=== PATIENT | male | born 1990 | race American Indian/Alaskan Native ===

== ENCOUNTER 2016-09-16 19:27 | Emergency (ER) | payer MEDICARE ==
[2016-09-16 20:16] VITALS: BP 124/75
[2016-09-16 20:43] LABS: Hematocrit 24.3 % (35.5-45.6); Hemoglobin 8.3 gm/dl (11.8-15.2); Mean Corpuscular HGB Conc 34 % (32-34); Mean Corpuscular Hemoglobin 27 pg (28-32); Mean Corpuscular Volume 77 fl (84-94); Platelet Count 313 K/mm3 (140-440); Red Blood Count 3.14 M/mm3 (3.65-5.03); Red Cell Distribution Width 17.6 % (13.2-15.2); Reticulocyte % 4.92 % (0.78-2.58); White Blood Count 15.1 K/mm3 (4.5-11.0)
[2016-09-16] MEDS ORDERED: D5NS 0.2% 1,000 ML IV SCH (21:00)
[2016-09-16 21:40] LABS: Blastocytes % (Manual) 0 %
[2016-09-16 21:41] LABS: Anisocytosis 1+; Microcytosis 1+
[2016-09-16 21:42] LABS: Diff Status Complete; Giant Platelets 1+; Hypochromasia 2+; Platelet Estimate Consistent w Auto; Poikilocytosis 1+; Polychromasia Few; Sickle Cells 2+; Target Cells 2+
== END 2016-09-16 20:19 | disposition left against medical advice (07) ==
LOC: ED 19:27
DX: J02.9 Acute pharyngitis, unspecified (principal); M54.5 Low back pain; M25.562 Pain in left knee; Z53.21 Procedure and treatment not carried out due to patient leaving prior to being seen by health care provider
CPT/HCPCS: 36415; 85007; 85025; 85045

== ENCOUNTER 2017-05-27 07:00 | Inpatient (IN) | payer MEDICARE ==
[2017-05-27 08:53] LABS: Basophils # (Auto) 0.1 K/mm3 (0.0-0.1); Basophils % (Auto) 0.4 % (0.0-1.8); Eosinophils # (Auto) 0.1 K/mm3 (0.0-0.4); Eosinophils % (Auto) 0.9 % (0.0-4.3); Hematocrit 30.7 % (35.5-45.6); Hemoglobin 9.9 gm/dl (11.8-15.2); Lymphocytes # (Auto) 3.9 K/mm3 (1.2-5.4); Lymphocytes % (Auto) 27.1 % (13.4-35.0); Mean Corpuscular HGB Conc 32 % (32-34); Mean Corpuscular Volume 78 fl (84-94); Monocytes % (Auto) 6.7 % (0.0-7.3); Platelet Count 427 K/mm3 (140-440); Red Blood Count 3.95 M/mm3 (3.65-5.03); Red Cell Distribution Width 16.9 % (13.2-15.2)
[2017-05-27 08:54] LABS: Mean Corpuscular Hemoglobin 25 pg (28-32)
[2017-05-27] MEDS ORDERED: D5NS 0.2% 1,000 ML IV SCH (09:00)
[2017-05-27 09:10] LABS: BUN/Creatinine Ratio 7; Blood Urea Nitrogen 4 mg/dL (9-20); Calcium 8.6 mg/dL (8.4-10.2); Hemolysis Index 16
--- NOTE | 2017-05-27 09:52 | XRay Report ---
ROUTINE CHEST, TWO VIEWS: HISTORY: Cough. The trachea, heart, mediastinal contour, lung singh and bony thorax are unremarkable. IMPRESSION: Unremarkable chest x-ray.
--- NOTE | 2017-05-27 11:25 | Emergency Department Report ---
Chief Complaint: Sickle Cell Crisis Stated Complaint: SICKLE CELL - HPI History of Present Illness: Mr. Gross has history of sickle cell disease. He has lower back pain and extremity pain. He has generalized malaise. He has cough. - Exam Vital Signs: Vital Signs 05/27/17 08:19 Temperature 100.4 F H Pulse Rate 100 H Respiratory 18 Rate Blood Pressure 117/69 O2 Sat by Pulse 100 Oximetry MSE screening note: Focused history and physical exam performed. Due to findings the following was ordered: ED Medical Decision Making - Lab Data Result diagrams: 05/27/17 08:40 05/27/17 08:40 ED Disposition for MSE Condition: Stable Referrals: PRIMARY CARE, [Primary Care Provider] - 3-5 Days
[2017-05-27] MEDS ORDERED: TYLENOL PO ONE (11:44)
[2017-05-27] MEDS ORDERED: DILAUDID IV ONE ×2 (11:50→13:23)
--- NOTE | 2017-05-27 11:50 | Emergency Department Report ---
<JEIMY GONZALES - Last Filed: 05/27/17 11:50> - General Chief Complaint: Sickle Cell Crisis Stated Complaint: SICKLE CELL Time Seen by Provider: 05/27/17 11:43 Source: patient Mode of arrival: Ambulatory Limitations: No Limitations - History of Present Illness MD Complaint: fever, cough, rhinorrhea, nasal congestion Onset/Timin - Related Data Previous Rx's Medication Instructions Recorded Last Taken Type Folic Acid [Folvite] 1 mg PO BID #30 tablet 01/26/16 Unknown Rx Ondansetron [Zofran Odt] 4 mg PO Q8HR PRN #20 tab.rapdis 01/26/16 Unknown Rx Oxycodone HCl/Acetaminophen 1 each PO Q6HR PRN #20 tablet 01/26/16 Unknown Rx [Percocet 10/325 mg] Allergies Allergy/AdvReac Type Severity Reaction Status Date / Time morphine Allergy Hives Verified 05/27/17 08:18 acetaminophen [From Lortab] AdvReac Mild Vomiting Verified 05/27/17 08:18 hydrocodone bitartrate AdvReac Mild Vomiting Verified 05/27/17 08:18 [From Lortab] ED Review of Systems ROS: Stated complaint: SICKLE CELL Other details as noted in HPI ED Past Medical Hx - Past Medical History Hx Sickle Cell Disease: Yes - Surgical History Past Surgical History?: No - Social History Smoking Status: Current Every Day Smoker Substance Use Type: None - Medications Home Medications: Home Medications Medication Instructions Recorded Confirmed Last Taken Type Folic Acid [Folvite] 1 mg PO BID #30 tablet 01/26/16 Unknown Rx Ondansetron [Zofran Odt] 4 mg PO Q8HR PRN #20 tab.rapdis 01/26/16 Unknown Rx Oxycodone HCl/Acetaminophen 1 each PO Q6HR PRN #20 tablet 01/26/16 Unknown Rx [Percocet 10/325 mg] ED Physical Exam - General Limitations: No Limitations ED Course Vital Signs 05/27/17 05/27/17 08:19 11:59 Temperature 100.4 F H Pulse Rate 100 H Respiratory 18 16 Rate Blood Pressure 117/69 O2 Sat by Pulse 100 Oximetry ED Medical Decision Making - Lab Data Result diagrams: 05/27/17 08:40 05/27/17 08:40 Critical care attestation.: If time is entered above; I have spent that time in minutes in the direct care of this critically ill patient, excluding procedure time. ED Disposition Condition: Stable Referrals: PRIMARY CARE, [Primary Care Provider] - 3-5 Days <SUNITA HOOKS - Last Filed: 05/27/17 12:21> - History of Present Illness Initial Comments: This is a 26 year-old male presents to the emergency department with a 2 day history of low back pain that he believes is a sickle cell pain crisis. There is some radiation of this towards his legs but he denies any problems with bowel or bladder, numbness or paresthesias or any neurological deficits. The patient also has a 2 day history of some nasal congestion and a mixed dry and productive cough. He denies any shortness of breath or any chest pain at rest but says that he gets some chest wall discomfort when he is coughing. He travels back and forth between [place] and [place] and just moved back here again and therefore does not have a primary care physician. No sick contacts at home. He has not taken anything for her symptoms to presentation. ED Review of Systems Constitutional: fever. denies: weakness Eyes: denies: eye pain, eye discharge, vision change ENT: denies: ear pain, throat pain Respiratory: cough. denies: shortness of breath Cardiovascular: denies: palpitations, edema Gastrointestinal: denies: abdominal pain, nausea, diarrhea Genitourinary: denies: urgency, dysuria Musculoskeletal: back pain. denies: joint swelling Skin: denies: rash, lesions Neurological: denies: headache, weakness, paresthesias ED Medical Decision Making - Lab Data Result diagrams: 05/27/17 08:40 05/27/17 08:40
[2017-05-27] MEDS ORDERED: NACL 0.9% 1000 ML 1,000 ML IV ONE (12:14)
--- NOTE | 2017-05-27 14:45 | Emergency Department Report ---
HPI - General Chief Complaint: Sickle Cell Crisis Time Seen by Provider: 05/27/17 11:43 - HPI HPI: This is a 26 year-old male who presents to the emergency department with complaint of some low back pain with some radiation towards the legs that he believes is a sickle cell pain crisis. He also presents with a one to 2 day history of a fever and a mixed dry and productive cough. He denies any chest pain at rest but says that when he is coughing he feels some chest and her chest wall discomfort. He has not taken anything for her symptoms prior presentation. 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 No sick contacts at home. ED Past Medical Hx - Past Medical History Hx Sickle Cell Disease: Yes - Surgical History Past Surgical History?: No - Social History Smoking Status: Current Every Day Smoker Substance Use Type: None - Medications Home Medications: Home Medications Medication Instructions Recorded Confirmed Last Taken Type Folic Acid [Folvite] 1 mg PO BID #30 tablet 01/26/16 Unknown Rx Ondansetron [Zofran Odt] 4 mg PO Q8HR PRN #20 tab.rapdis 01/26/16 Unknown Rx Oxycodone HCl/Acetaminophen 1 each PO Q6HR PRN #20 tablet 01/26/16 Unknown Rx [Percocet 10/325 mg] ED Review of Systems ROS: Stated complaint: SICKLE CELL Other details as noted in HPI Comment: All other systems reviewed and negative Constitutional: denies: chills, fever Eyes: denies: eye pain, eye discharge, vision change ENT: denies: ear pain, throat pain Respiratory: cough. denies: wheezing Cardiovascular: chest pain (with coughing). denies: edema Gastrointestinal: denies: abdominal pain, nausea, diarrhea Genitourinary: denies: urgency, dysuria Musculoskeletal: back pain, myalgia Skin: denies: rash, lesions Neurological: headache. denies: weakness Physical Exam - Physical Exam Vital Signs: Vital Signs 05/27/17 05/27/17 05/27/17 08:19 11:59 12:41 Temperature 100.4 F H Pulse Rate 100 H 94 H Respiratory 18 16 16 Rate Blood Pressure 117/69 Blood Pressure 106/45 [Right] O2 Sat by Pulse 100 95 Oximetry Physical Exam: GENERAL: The patient is well-developed well-nourished. HENT: Normocephalic. Atraumatic. Patient has moist mucous membranes. EYES: Extraocular motions are intact. Pupils equal reactive to light bilaterally. NECK: Supple. Trachea is midline. CHEST/LUNGS: Clear to auscultation. There is no respiratory distress noted. HEART/CARDIOVASCULAR: Regular. There is mild tachycardia. There is no murmur. ABDOMEN: Abdomen is soft, nontender. Patient has normal bowel sounds. There is no abdominal distention. SKIN: Skin is warm and dry. NEURO: The patient is awake, alert, and oriented. The patient is cooperative. The patient has no focal neurologic deficits. The patient has normal speech. MUSCULOSKELETAL: There is no tenderness or deformity. There is no limitation range of motion. There is no evidence of acute injury. BACK: No midline thoracic or lumbar TTP, step off or deformity. ED Course Vital Signs 05/27/17 05/27/17 05/27/17 08:19 11:59 12:41 Temperature 100.4 F H Pulse Rate 100 H 94 H Respiratory 18 16 16 Rate Blood Pressure 117/69 Blood Pressure 106/45 [Right] O2 Sat by Pulse 100 95 Oximetry ED Medical Decision Making - Lab Data Result diagrams: 05/27/17 08:40 05/27/17 08:40 - EKG Data -: EKG Interpreted by Me EKG shows normal: sinus rhythm, axis, intervals, QRS complexes, ST-T waves ( early repolarization) Rate: normal - EKG Data When compared to previous EKG there are: no significant change Interpretation: unchanged when compared t (02/28/15) - Radiology Data Radiology results: report reviewed, image reviewed interpreted by me: Chest x-ray does not show any acute process. There are no pleural effusions, obvious pneumonia and there is no pneumothorax. CTA CHEST: HISTORY: Chest pain, elevated d-dimer. COMPARISON: none. TECHNIQUE: Helical CT in 1.25mm intervals following IV contrast. Pulmonary embolus protocol. Sagittal and coronal reformatted images. Rotational MIP images. FINDINGS: Contrast bolus is satisfactory. No pulmonary embolus is identified. Thyroid gland: Normal. Tracheobronchial tree: Normal. Esophagus: Normal. Heart: Normal. Pericardium: Normal. Mediastinum: An enlarged AP window lymph node measures 2.8 x 1.2 cm. There are multiple bilateral similar appearing enlarged axillary lymph nodes. No lower cervical or upper abdominal lymph nodes are appreciated. Lung Batista: normal. Pleural Spaces: Normal. Musculoskeletal: Normal. IMPRESSION: No evidence for pulmonary embolus. Mediastinal and bilateral axillary adenopathy. Is there clinical concern for lymphoma in this patient? Transcribed By: TTR Dictated By: BRE BRISENO JR, MD Electronically Authenticated By: BRE BRISENO JR, MD Signed Date/Time: 05/27/17 7924 - Medical Decision Making Patient presents with a low-grade fever and some back pain with some radiation towards his legs. He does not have any problems with bowel or bladder, numbness or paresthesias or any neurological deficits and therefore is low suspicion for any of the emergent back conditions such as cauda equina, epidural abscess or compression syndrome. Chest x-ray did not show any signs of infiltrates or pneumonia so he is a lower suspicion for chest crisis. However with his recent travel, his intermittent chest pain with coughing, the tachycardia, I decided to rule out a PE. D-dimer came back elevated at [address] angiography of the chest was done that did not show any evidence for pulmonary embolus but did show some mediastinal and bilateral axillary adenopathy. The patient has gotten some IV fluids and pain medication but still says he is having pain. He will be admitted to the hospital for further evaluation and treatment and has been accepted for admission by the hospitalist , Dr Suggs. - Differential Diagnosis SS pain crisis, chest crisis, influenza, pneumonia Critical Care Time: No Critical care attestation.: If time is entered above; I have spent that time in minutes in the direct care of this critically ill patient, excluding procedure time. ED Disposition Clinical Impression: Sickle cell pain crisis, Lymphadenopathy, Dehydration Fever Qualifiers: Fever type: unspecified Qualified Code(s): R50.9 - Fever, unspecified Leukocytosis Qualifiers: Leukocytosis type: unspecified Qualified Code(s): D72.829 - Elevated white blood cell count, unspecified Disposition: OP ADMIT IP TO THIS HOSP Is pt being admited?: Yes Condition: Fair Referrals: PRIMARY CARE, [Primary Care Provider] - 3-5 Days Time of Disposition: 15:25
--- NOTE | 2017-05-27 14:54 | Cat Scan Report ---
CTA CHEST: HISTORY: Chest pain, elevated d-dimer. COMPARISON: none. TECHNIQUE: Helical CT in 1.25mm intervals following IV contrast. Pulmonary embolus protocol. Sagittal and coronal reformatted images. Rotational MIP images. FINDINGS: Contrast bolus is satisfactory. No pulmonary embolus is identified. Thyroid gland: Normal. Tracheobronchial tree: Normal. Esophagus: Normal. Heart: Normal. Pericardium: Normal. Mediastinum: An enlarged AP window lymph node measures 2.8 x 1.2 cm. There are multiple bilateral similar appearing enlarged axillary lymph nodes. No lower cervical or upper abdominal lymph nodes are appreciated. Lung Batista: normal. Pleural Spaces: Normal. Musculoskeletal: Normal. IMPRESSION: No evidence for pulmonary embolus. Mediastinal and bilateral axillary adenopathy. Is there clinical concern for lymphoma in this patient?
[2017-05-27] MEDS ORDERED: PROVENTIL IH PRN (15:22)
[2017-05-27] MEDS ORDERED: PERCOCET 5/325 PO PRN (15:22)
[2017-05-27] MEDS ORDERED: ZOFRAN IV PRN (15:22)
[2017-05-27] MEDS ORDERED: ZOFRAN ODT PO PRN (15:24)
[2017-05-27] MEDS ORDERED: NON-FORMULARY (Oxycodone Hcl/Acetaminophen [Percocet 10/325 Mg] 1 EACH) PO PRN (15:24)
--- NOTE | 2017-05-27 15:25 | History and Physical Report ---
History of Present Illness Chief complaint: Im hurting all over doc History of present illness: 26 YO Male with SSD, Nicotine Dependence presents to ED for evaluation. Pt states that he has experienced pain in his lower body for the past 2 days. Pt states that his pain is 6/10, constant, and is associated with coughing. Pt acknowledges medication noncompliance, and lack of outpatient F/U care. Pt states that he has not taken any medication for his pain. Pt denies fever, chills, CP, Palpitations, NVD, Hip pain, hemoptysis, shortness of breath, syncope, unilateral leg swelling, calf pain, or recent ill contacts. Pt seen and evaluated in ED and found to have symptoms consistent with sickle cell crisis. Past History Past Medical History: other (Nicotine Dependence, SCD) Past Surgical History: No surgical history, Other (reviewed) Social history: single, smoking. denies: alcohol abuse, prescription drug abuse Family history: hypertension, other (SCD) Medications and Allergies Allergies Allergy/AdvReac Type Severity Reaction Status Date / Time morphine Allergy Hives Verified 05/27/17 08:18 acetaminophen [From Lortab] AdvReac Mild Vomiting Verified 05/27/17 08:18 hydrocodone bitartrate AdvReac Mild Vomiting Verified 05/27/17 08:18 [From Lortab] Home Medications Medication Instructions Recorded Confirmed Last Taken Type Folic Acid [Folvite] 1 mg PO BID #30 tablet 01/26/16 05/27/17 Unknown Rx Ondansetron [Zofran Odt] 4 mg PO Q8HR PRN #20 tab.rapdis 01/26/16 05/27/17 Unknown Rx Oxycodone HCl/Acetaminophen 1 each PO Q6HR PRN #20 tablet 01/26/16 05/27/17 Unknown Rx [Percocet 10/325 mg] Active Meds: Active Medications Acetaminophen (Tylenol) 650 mg PO Q4H PRN PRN Reason: Pain MILD(1-3)/Fever >100.5/GARCIA Albuterol (Proventil) 2.5 mg IH Q4HRT PRN PRN Reason: Shortness Of Breath Folic Acid (Folvite) 1 mg PO BID LUNA Hydroxyurea (Hydrea) 500 mg PO QDAY LUNA Dextrose/Sodium Chloride (D5ns 0.2%) 1,000 mls @ 250 mls/hr IV DIRECT LUNA Sodium Chloride (Nacl 0.45%) 2,000 mls @ 150 mls/hr IV DIRECT LUNA Sodium Chloride (Nacl 0.45%) 1,000 mls @ 1,000 mls/hr IV DIRECT LUNA Miscellaneous Medication (Oxycodone Hcl/Acetaminophen [Percocet 10/325 Mg]) 1 each PO Q6HR PRN PRN Reason: Pain Ondansetron HCl (Zofran) 4 mg IV Q8H PRN PRN Reason: N/V unrelieved by Reglan Ondansetron HCl (Zofran Odt) 4 mg PO Q8HR PRN PRN Reason: Nausea And Vomiting Review of Systems Constitutional: chronic pain, no fever, no chills, no sweats Ears, nose, mouth and throat: no ear pain, no ear discharge, no tinnitis, no decreased hearing, no nose pain Cardiovascular: no chest pain, no orthopnea, no palpitations, no edema, no syncope Respiratory: no cough, no cough with sputum, no excessive sputum, no hemoptysis , no shortness of breath Rectal: no pain, no incontinence, no bleeding Musculoskeletal: no neck stiffness, no neck pain, no shooting arm pain, no arm numbness/tingling, no low back pain, no shooting leg pain Integumentary: no rash, no pruritis, no redness, no sores, no wounds, no jaundice Neurological: no head injury, no transient paralysis, no paralysis, no weakness , no parathesias, no numbness, no tingling, no seizures Psychiatric: no anxiety, no memory loss, no change in sleep habits, no sleep disturbances, no insomnia, no hypersomnia, no change in appetite Endocrine: no cold intolerance, no heat intolerance, no polyphagia, no excessive thirst, no polydipsia, no polyuria, no nocturia Hematologic/Lymphatic: no easy bruising, no easy bleeding, no lymphadenopathy, no lymphedema Allergic/Immunologic: no urticaria, no allergic rhinitis, no wheezing, no persistent infections Exam - Constitutional Vitals: Temp Pulse Resp BP Pulse Ox 100.4 F H 105 H 16 112/55 95 05/27/17 08:19 05/27/17 15:14 05/27/17 15:14 05/27/17 15:14 05/27/17 15:14 General appearance: Present: mild distress - EENT Eyes: Present: PERRL ENT: hearing intact, clear oral mucosa - Neck Neck: Present: supple, normal ROM - Respiratory Respiratory effort: normal Respiratory: bilateral: CTA - Cardiovascular Heart Sounds: Present: S1 & S2. Absent: rub, click - Extremities Extremities: pulses symmetrical, No edema Peripheral Pulses: within normal limits - Abdominal General gastrointestinal: Present: soft, non-tender, non-distended, normal bowel sounds Male genitourinary: Present: normal - Integumentary Integumentary: Present: clear, warm, dry - Musculoskeletal Musculoskeletal: gait normal, strength equal bilaterally - Psychiatric Psychiatric: appropriate mood/affect, intact judgment & insight - Neurologic Neurologic: CNII-XII intact, moves all extremities Results - Labs CBC & Chem 7: 05/27/17 08:40 05/27/17 08:40 Labs: Abnormal lab results 05/27/17 05/27/17 05/27/17 Range/Units 08:40 08:40 12:34 WBC 14.3 H (4.5-11.0) K/mm3 Hgb 9.9 L (11.8-15.2) gm/dl Hct 30.7 L (35.5-45.6) % MCV 78 L (84-94) fl MCH 25 L (28-32) pg RDW 16.9 H (13.2-15.2) % [place] # 1.0 H (0.0-0.8) K/mm3 Seg Neutrophils # 9.3 H (1.8-7.7) K/mm3 Percent Retic 6.49 H (0.78-2.58) % D-Dimer 1317.75 H (0-234) ng/mlDDU Sodium 136 L (137-145) mmol/L BUN 4 L (9-20) mg/dL Creatinine 0.6 L (0.8-1.5) mg/dL Assessment and Plan - Patient Problems (1) Sickle cell pain crisis Current Visit: Yes Status: Acute Plan to address problem: IVF resuscitation, pain control, hydroxyurea, folic acid, supportive care. (2) Nicotine dependence Current Visit: Yes Status: Acute Qualifiers: Nicotine product type: cigarettes Substance use status: in withdrawal Qualified Code(s): F17.213 - Nicotine dependence, cigarettes, with withdrawal Plan to address problem: Pt counseled and refused to pick quit date, supportive care. (3) Severe malnutrition Current Visit: Yes Status: Acute Plan to address problem: encourage increased protein intake, supportive care. (4) DVT prophylaxis Current Visit: Yes Status: Acute
[2017-05-27] MEDS ORDERED: ROXICODONE PO PRN (15:40)
[2017-05-27] MEDS ORDERED: NACL 0.45% 1,000 ML IV SCH (16:00)
[2017-05-27] MEDS ORDERED: NACL 0.45% 2,000 ML IV SCH (16:00)
[2017-05-27] MEDS: PERCOCET 5/325 PO PRN (17:32)
[2017-05-27] MEDS: FOLVITE PO SCH (21:08)
[2017-05-27 21:13] LABS: Bilirubin,Urine NEG (Negative); Blood,Urine NEG (Negative); Color,Urine Yellow (Yellow); Nitrite,Urine NEG (Negative); Protein,Urine <15 mg/dL mg/dL (Negative); RBC,Urine < 1.0 /HPF (0.0-6.0); WBC,Urine < 1.0 /HPF (0.0-6.0)
[2017-05-28] MEDS ORDERED: DILAUDID IV ONE (02:00)
[2017-05-28] MEDS: TESSALON PERLES PO PRN ×2 (02:22→21:05)
[2017-05-28] MEDS: PERCOCET 5/325 PO PRN (08:28)
--- NOTE | 2017-05-28 09:19 | Progress Note ---
Assessment and Plan Assessment and plan: Sickle cell vaso-occlusive crisis. patient admitted to Med/surg. he says Percocet not helping with pain. Will switch to Dilaudid iv prn. iv fluids. Consult Dr. Walter Mediastinal and axillary lyphadenopathy. I discuused this with patient and he denies any previous history of this. Willl consult oncologist, Dr. Walter. Leukocytosis, reactive. Hyponatremia. Give iv fluid NS and recheck in am. Full code status History Interval history: gen body pain, Low back pain Hospitalist Physical - Physical exam Narrative exam: GEN APPEARANCE : Not in acute distress, HEENT: Normocephalic, Atraumatic NECK : supple, no JVD LUNGS: Clear to auscultation bilaterally, no rales, no wheeze HEART: S1 and S2 regular, no murmurs, rubs or gallop, ABD: Soft, non tender, non distended, normal bowel sounds EXT:No edema, no clubbing, no cyanosis NEURO: Awake, alert, oriented x 3, no focal signs - Constitutional Vitals: Temp Pulse Resp BP Pulse Ox 99.5 F 84 16 92/46 92 05/28/17 07:52 05/28/17 07:52 05/28/17 07:52 05/28/17 07:52 05/28/17 07:52 General appearance: Present: mild distress Results - Labs CBC & Chem 7: 05/27/17 08:40 05/27/17 08:40 Labs: Laboratory Last Values WBC 14.3 K/mm3 (4.5-11.0) H 05/27/17 08:40 RBC 3.95 M/mm3 (3.65-5.03) 05/27/17 08:40 Hgb 9.9 gm/dl (11.8-15.2) L 05/27/17 08:40 Hct 30.7 % (35.5-45.6) L 05/27/17 08:40 MCV 78 fl (84-94) L 05/27/17 08:40 MCH 25 pg (28-32) L 05/27/17 08:40 MCHC 32 % (32-34) 05/27/17 08:40 RDW 16.9 % (13.2-15.2) H 05/27/17 08:40 Plt Count 427 K/mm3 (140-440) 05/27/17 08:40 Lymph % (Auto) 27.1 % (13.4-35.0) 05/27/17 08:40 [place] % (Auto) 6.7 % (0.0-7.3) 05/27/17 08:40 Eos % (Auto) 0.9 % (0.0-4.3) 05/27/17 08:40 Baso % (Auto) 0.4 % (0.0-1.8) 05/27/17 08:40 Lymph # 3.9 K/mm3 (1.2-5.4) 05/27/17 08:40 [place] # 1.0 K/mm3 (0.0-0.8) H 05/27/17 08:40 Eos # 0.1 K/mm3 (0.0-0.4) 05/27/17 08:40 Baso # 0.1 K/mm3 (0.0-0.1) 05/27/17 08:40 Seg Neutrophils % 64.9 % (40.0-70.0) 05/27/17 08:40 Seg Neutrophils # 9.3 K/mm3 (1.8-7.7) H 05/27/17 08:40 Percent Retic 6.49 % (0.78-2.58) H 05/27/17 08:40 D-Dimer 1317.75 ng/mlDDU (0-234) H 05/27/17 12:34 Sodium 136 mmol/L (137-145) L 05/27/17 08:40 Potassium 5.0 mmol/L (3.6-5.0) 05/27/17 08:40 Chloride 100.6 mmol/L (98-107) 05/27/17 08:40 Carbon Dioxide 27 mmol/L (22-30) 05/27/17 08:40 Anion Gap 13 mmol/L 05/27/17 08:40 BUN 4 mg/dL (9-20) L 05/27/17 08:40 Creatinine 0.6 mg/dL (0.8-1.5) L 05/27/17 08:40 Estimated GFR > 60 ml/min 05/27/17 08:40 BUN/Creatinine Ratio 7 % 05/27/17 08:40 Glucose 87 mg/dL (75-100) 05/27/17 08:40 Lactic Acid 1.90 mmol/L (0.7-2.0) 05/27/17 08:40 Calcium 8.6 mg/dL (8.4-10.2) 05/27/17 08:40 Total Creatine Kinase 89 units/L (55-170) 05/27/17 08:40 Troponin T < 0.010 ng/mL (0.00-0.029) 05/27/17 12:34 Urine Color Yellow (Yellow) 05/27/17 Unknown Urine Turbidity Clear (Clear) 05/27/17 Unknown Urine pH 6.0 (5.0-7.0) 05/27/17 Unknown Ur Specific [place] 1.026 (1.003-1.030) 05/27/17 Unknown Urine Protein <15 mg/dl mg/dL (Negative) 05/27/17 Unknown Urine Glucose (UA) Neg mg/dL (Negative) 05/27/17 Unknown Urine Ketones Neg mg/dL (Negative) 05/27/17 Unknown Urine Blood Neg (Negative) 05/27/17 Unknown Urine Nitrite Neg (Negative) 05/27/17 Unknown Urine Bilirubin Neg (Negative) 05/27/17 Unknown Urine Urobilinogen 4.0 mg/dL (<2.0) 05/27/17 Unknown Ur Leukocyte Esterase Neg (Negative) 05/27/17 Unknown Urine WBC (Auto) < 1.0 /HPF (0.0-6.0) 05/27/17 Unknown Urine RBC (Auto) < 1.0 /HPF (0.0-6.0) 05/27/17 Unknown
[2017-05-28] MEDS: FOLVITE PO SCH ×2 (10:36→21:05)
[2017-05-28] MEDS: HYDREA PO SCH (10:36)
[2017-05-28] MEDS: DILAUDID IV PRN ×3 (11:35→21:08)
[2017-05-28] MEDS: NACL 0.9% 1000 ML 1,000 ML IV SCH ×2 (13:06→21:06)
[2017-05-28] MEDS: HEPARIN SUB-Q SCH ×2 (16:25→21:08)
[2017-05-28] MEDS ORDERED: DILAUDID IM PRN (17:45)
--- NOTE | 2017-05-28 17:51 | Consultation ---
History of Present Illness - Reason for Consult Consult date: 05/28/17 diffuse Lymphnodes. Requesting physician: CHEPE CARTAGENA - History of Present Illness Thank you for this consult, patient seen/examined, record reviewed, case d/w patient. He stated that he had LN in the groin few months ago, and bx at [facility], was negative.Will probably need out patient PET scan, and if suspicious, will need bx. Past History Past Medical History: anemia, other (Nicotine Dependence, SCD) Past Surgical History: No surgical history, Other (reviewed) Social history: single, smoking. denies: alcohol abuse, prescription drug abuse Family history: hypertension, other (SCD) Medications and Allergies Allergies Allergy/AdvReac Type Severity Reaction Status Date / Time morphine Allergy Hives Verified 05/27/17 08:18 acetaminophen [From Lortab] AdvReac Mild Vomiting Verified 05/27/17 08:18 hydrocodone bitartrate AdvReac Mild Vomiting Verified 05/27/17 08:18 [From Lortab] Home Medications Medication Instructions Recorded Confirmed Last Taken Type Folic Acid [Folvite] 1 mg PO BID #30 tablet 01/26/16 05/27/17 Unknown Rx Ondansetron [Zofran Odt] 4 mg PO Q8HR PRN #20 tab.rapdis 01/26/16 05/27/17 Unknown Rx Oxycodone HCl/Acetaminophen 1 each PO Q6HR PRN #20 tablet 01/26/16 05/27/17 Unknown Rx [Percocet 10/325 mg] Active Meds: Active Medications Acetaminophen (Tylenol) 650 mg PO Q4H PRN PRN Reason: Pain MILD(1-3)/Fever >100.5/GARCIA Albuterol (Proventil) 2.5 mg IH Q4HRT PRN PRN Reason: Shortness Of Breath Benzonatate (Tessalon Perles) 100 mg PO Q6HR PRN PRN Reason: Cough Last Admin: 05/28/17 02:22 Dose: 100 mg Folic Acid (Folvite) 1 mg PO BID [facility] Last Admin: 05/28/17 10:36 Dose: 1 mg Heparin Sodium (Porcine) (Heparin) 5,000 unit SUB-Q Q8HR [facility] Last Admin: 05/28/17 16:25 Dose: 5,000 unit Hydromorphone HCl (Dilaudid) 2 mg IM Q3H PRN PRN Reason: Pain , Severe (7-10) Hydroxyurea (Hydrea) 500 mg PO QDAY LUNA Last Admin: 05/28/17 10:36 Dose: 500 mg Sodium Chloride (Nacl 0.9% 1000 Ml) 1,000 mls @ 150 mls/hr IV DIRECT LUNA Last Admin: 05/28/17 13:06 Dose: 150 mls/hr Ondansetron HCl (Zofran) 4 mg IV Q8H PRN PRN Reason: N/V unrelieved by Reglan Ondansetron HCl (Zofran Odt) 4 mg PO Q8HR PRN PRN Reason: Nausea And Vomiting Review of Systems Constitutional: chronic pain Exam - Constitutional Vitals: Temp Pulse Resp BP Pulse Ox 99.0 F 84 16 96/52 92 05/28/17 14:46 05/28/17 07:52 05/28/17 14:46 05/28/17 14:46 05/28/17 07:52 General appearance: Present: no acute distress, well-nourished - EENT Eyes: Present: PERRL ENT: hearing intact, clear oral mucosa - Neck Neck: Present: supple, normal ROM - Respiratory Respiratory effort: normal Respiratory: bilateral: CTA - Cardiovascular Heart Sounds: Present: S1 & S2. Absent: rub, click - Extremities Extremities: pulses symmetrical, No edema Peripheral Pulses: within normal limits - Abdominal General gastrointestinal: Present: soft, non-tender, non-distended, normal bowel sounds Male genitourinary: Present: deferred - Rectal Rectal Exam: deferred - Integumentary Integumentary: Present: clear, warm, dry - Musculoskeletal Musculoskeletal: gait normal, strength equal bilaterally - Psychiatric Psychiatric: appropriate mood/affect, intact judgment & insight - Neurologic Neurologic: CNII-XII intact, moves all extremities Results - Labs CBC & Chem 7: 05/27/17 08:40 05/27/17 08:40 Assessment and Plan - Patient Problems (1) Dehydration Current Visit: Yes Status: Acute Plan to address problem: hydration (2) Lymphadenopathy Current Visit: Yes Status: Acute Plan to address problem: See notes. (3) Sickle cell pain crisis Current Visit: Yes Status: Acute Plan to address problem: Pain control. (4) Nicotine dependence Current Visit: Yes Status: Acute Qualifiers: Nicotine product type: cigarettes Substance use status: in withdrawal Qualified Code(s): F17.213 - Nicotine dependence, cigarettes, with withdrawal Plan to address problem: Smoking patch. (5) Leukocytosis Current Visit: Yes Status: Acute Qualifiers: Leukocytosis type: unspecified Qualified Code(s): D72.829 - Elevated white blood cell count, unspecified Plan to address problem: may be crisis related vs infection.
[2017-05-28] MEDS ORDERED: DILAUDID IV PRN (17:55)
[2017-05-29] MEDS: NACL 0.9% 1000 ML 1,000 ML IV SCH ×4 (02:59→23:29)
[2017-05-29] MEDS: TESSALON PERLES PO PRN ×2 (04:29→21:14)
[2017-05-29] MEDS: DILAUDID IV PRN ×5 (04:30→22:17)
[2017-05-29] MEDS: HEPARIN SUB-Q SCH ×4 (04:33→21:14)
[2017-05-29 08:05] LABS: Hematocrit 28.1 % (35.5-45.6); Hemoglobin 9.5 gm/dl (11.8-15.2); Mean Corpuscular HGB Conc 34 % (32-34); Mean Corpuscular Volume 75 fl (84-94); Platelet Count 306 K/mm3 (140-440); Red Blood Count 3.72 M/mm3 (3.65-5.03); Red Cell Distribution Width 18.4 % (13.2-15.2)
[2017-05-29 08:18] LABS: Mean Corpuscular Hemoglobin 26 pg (28-32)
[2017-05-29 08:26] LABS: BUN/Creatinine Ratio 8; Blood Urea Nitrogen 4 mg/dL (9-20); Calcium 8.3 mg/dL (8.4-10.2); Hemolysis Index 11
[2017-05-29] MEDS: HYDREA PO SCH (09:14)
[2017-05-29] MEDS: FOLVITE PO SCH ×2 (09:14→21:14)
[2017-05-29] MEDS: TYLENOL PO PRN (11:09)
--- NOTE | 2017-05-29 11:51 | Discharge Summary ---
Providers - Providers Date of Admission: 05/27/17 15:22 Date of discharge: 05/29/17 Attending physician: CHEPE CARTAGENA 05/28/17 09:19 Consult to Physician [CONS] Routine Consulting Provider: ANAI DESAI Reason For Exam: lymphadenopathy,sickle cell crisis Place consult to:: DR. Baltazar Notified:: DR. Mcduffie Phone number called:: [phone] Was contact made?: Yes If yes, spoke with:: DR. Mcduffie Time called:: 11:05 Primary care physician: BOOKSTORE CLERK Hospitalization Condition: Fair Hospital course: Patient with sickle cell presents with generalized body pain, mostly low back pain. She was diagnosed with sickle cell vaso-occlusive disease. CT chest showed mediastinal and axillary lymphadenopathy, therefore Dr. Desai, Oncology consulted. Pain improved and he was discharged home 05/30/[address] Desai as outpatient for further work up to rule out lymphoma. Total time spent omn discharge, 32 mins Disposition: DC- TO HOME OR SELFCARE - Discharge Diagnoses (1) Dehydration Status: Acute (2) Lymphadenopathy Status: Acute (3) Sickle cell pain crisis Status: Acute Core Measure Documentation - Palliative Care Palliative Care/ Comfort Measures: Not Applicable - Core Measures Any of the following diagnoses?: none Exam - Constitutional Vitals: Temp Pulse Resp BP Pulse Ox 98.5 F 89 18 107/64 90 05/29/17 08:01 05/29/17 08:01 05/29/17 08:01 05/29/17 08:01 05/29/17 08:01 Plan Activity: advance as tolerated Diet: regular Additional Instructions: 1.Follow up with Dr. Desai in 3-5 days to follow mediastinal and axillary lymphadenopathy. Follow up with: PRIMARY CAREMD [Primary Care Provider] - 3-5 Days Prescriptions: Oxycodone HCl/Acetaminophen [Percocet 10/325 mg] 1 each PO Q6HR PRN #20 tablet PRN Reason: Pain
--- NOTE | 2017-05-29 16:56 | Progress Note ---
Assessment and Plan - Patient Problems (1) Dehydration Current Visit: Yes Status: Acute Plan to address problem: hydration (2) Lymphadenopathy Current Visit: Yes Status: Acute Plan to address problem: See notes. (3) Sickle cell pain crisis Current Visit: Yes Status: Acute Plan to address problem: Pain control. (4) Nicotine dependence Current Visit: Yes Status: Acute Qualifiers: Nicotine product type: cigarettes Substance use status: in withdrawal Qualified Code(s): F17.213 - Nicotine dependence, cigarettes, with withdrawal Plan to address problem: Smoking patch. (5) Leukocytosis Current Visit: Yes Status: Acute Qualifiers: Leukocytosis type: unspecified Qualified Code(s): D72.829 - Elevated white blood cell count, unspecified Plan to address problem: may be crisis related vs infection. Subjective Date of service: 05/29/17 Interval history: Patient resting in bed, nAD, labs reviewed, and ok. Disposition as per you. Objective - Constitutional Vitals: Vital Signs - 12hr 05/29/17 05/29/17 05/29/17 05:00 08:01 10:00 Temperature 98.5 F Pulse Rate 89 Respiratory 18 18 Rate Blood Pressure 107/64 O2 Sat by Pulse 90 90 Oximetry General appearance: Present: no acute distress, cachectic - EENT Eyes: PERRL, EOM intact ENT: hearing intact, clear oral mucosa Ears: bilateral: normal - Neck Neck: supple, normal ROM - Respiratory Respiratory effort: normal Respiratory: bilateral: CTA - Breasts Breasts: deferred - Cardiovascular Rhythm: regular Heart Sounds: Present: S1 & S2. Absent: gallop, rub Extremities: pulses intact, No edema, normal color, Full ROM - Gastrointestinal General gastrointestinal: Present: soft, non-tender, non-distended, normal bowel sounds Rectal Exam: deferred - Genitourinary Male genitourinary: deferred - Integumentary Integumentary: clear, warm, dry - Musculoskeletal Musculoskeletal: 1, strength equal bilaterally - Neurologic Neurologic: moves all extremities - Psychiatric Psychiatric: memory intact, appropriate mood/affect, intact judgment & insight - Labs CBC & Chem 7: 05/29/17 07:46 05/29/17 07:46 Labs: Abnormal lab results 05/29/17 05/29/17 Range/Units 07:46 07:46 WBC 11.6 H (4.5-11.0) K/mm3 Hgb 9.5 L (11.8-15.2) gm/dl Hct 28.1 L (35.5-45.6) % MCV 75 L (84-94) fl MCH 26 L (28-32) pg RDW 18.4 H (13.2-15.2) % Sodium 136 L (137-145) mmol/L BUN 4 L (9-20) mg/dL Creatinine 0.5 L (0.8-1.5) mg/dL Calcium 8.3 L (8.4-10.2) mg/dL
[2017-05-30] MEDS: TYLENOL PO PRN (02:47)
--- NOTE | 2017-05-30 02:59 | Progress Note ---
Assessment and Plan Assessment and plan: Sickle cell vaso-occlusive crisis. patient admitted to Med/surg. He said Percocet not helping with pain, therefore switched to Dilaudid iv prn. Continueiv fluids. Dr. Walter following. I discussed with him Mediastinal and axillary lyphadenopathy. I discuused this with patient and he denies any previous history of this. Dr. Walter following. To do further workup as outpatient.. Leukocytosis, reactive. Hyponatremia. Give iv fluid NS and recheck in am. Full code status History Interval history: gen body pain, Low back pain Hospitalist Physical - Physical exam Narrative exam: GEN APPEARANCE : Not in acute distress, HEENT: Normocephalic, Atraumatic NECK : supple, no JVD LUNGS: Clear to auscultation bilaterally, no rales, no wheeze HEART: S1 and S2 regular, no murmurs, rubs or gallop, ABD: Soft, non tender, non distended, normal bowel sounds EXT:No edema, no clubbing, no cyanosis NEURO: Awake, alert, oriented x 3, no focal signs - Constitutional Vitals: Temp Pulse Resp BP Pulse Ox 100.4 F H 93 H 18 110/64 91 05/29/17 22:06 05/29/17 22:12 05/30/17 02:47 05/29/17 22:06 05/29/17 22:00 General appearance: Present: no acute distress, cachectic Results - Labs CBC & Chem 7: 05/29/17 07:46 05/29/17 07:46 Labs: Laboratory Last Values WBC 11.6 K/mm3 (4.5-11.0) H 05/29/17 07:46 RBC 3.72 M/mm3 (3.65-5.03) 05/29/17 07:46 Hgb 9.5 gm/dl (11.8-15.2) L 05/29/17 07:46 Hct 28.1 % (35.5-45.6) L 05/29/17 07:46 MCV 75 fl (84-94) L 05/29/17 07:46 MCH 26 pg (28-32) L 05/29/17 07:46 MCHC 34 % (32-34) 05/29/17 07:46 RDW 18.4 % (13.2-15.2) H 05/29/17 07:46 Plt Count 306 K/mm3 (140-440) 05/29/17 07:46 Lymph % (Auto) 27.1 % (13.4-35.0) 05/27/17 08:40 [place] % (Auto) 6.7 % (0.0-7.3) 05/27/17 08:40 Eos % (Auto) 0.9 % (0.0-4.3) 05/27/17 08:40 Baso % (Auto) 0.4 % (0.0-1.8) 05/27/17 08:40 Lymph # 3.9 K/mm3 (1.2-5.4) 05/27/17 08:40 [place] # 1.0 K/mm3 (0.0-0.8) H 05/27/17 08:40 Eos # 0.1 K/mm3 (0.0-0.4) 05/27/17 08:40 Baso # 0.1 K/mm3 (0.0-0.1) 05/27/17 08:40 Seg Neutrophils % 64.9 % (40.0-70.0) 05/27/17 08:40 Seg Neutrophils # 9.3 K/mm3 (1.8-7.7) H 05/27/17 08:40 Percent Retic 6.49 % (0.78-2.58) H 05/27/17 08:40 D-Dimer 1317.75 ng/mlDDU (0-234) H 05/27/17 12:34 Sodium 136 mmol/L (137-145) L 05/29/17 07:46 Potassium 4.4 mmol/L (3.6-5.0) 05/29/17 07:46 Chloride 99.8 mmol/L (98-107) 05/29/17 07:46 Carbon Dioxide 26 mmol/L (22-30) 05/29/17 07:46 Anion Gap 15 mmol/L 05/29/17 07:46 BUN 4 mg/dL (9-20) L 05/29/17 07:46 Creatinine 0.5 mg/dL (0.8-1.5) L 05/29/17 07:46 Estimated GFR > 60 ml/min 05/29/17 07:46 BUN/Creatinine Ratio 8 % 05/29/17 07:46 Glucose 78 mg/dL (75-100) 05/29/17 07:46 Lactic Acid 1.90 mmol/L (0.7-2.0) 05/27/17 08:40 Calcium 8.3 mg/dL (8.4-10.2) L 05/29/17 07:46 Total Creatine Kinase 89 units/L (55-170) 05/27/17 08:40 Troponin T < 0.010 ng/mL (0.00-0.029) 05/27/17 12:34 Urine Color Yellow (Yellow) 05/27/17 Unknown Urine Turbidity Clear (Clear) 05/27/17 Unknown Urine pH 6.0 (5.0-7.0) 05/27/17 Unknown Ur Specific [place] 1.026 (1.003-1.030) 05/27/17 Unknown Urine Protein <15 mg/dl mg/dL (Negative) 05/27/17 Unknown Urine Glucose (UA) Neg mg/dL (Negative) 05/27/17 Unknown Urine Ketones Neg mg/dL (Negative) 05/27/17 Unknown Urine Blood Neg (Negative) 05/27/17 Unknown Urine Nitrite Neg (Negative) 05/27/17 Unknown Urine Bilirubin Neg (Negative) 05/27/17 Unknown Urine Urobilinogen 4.0 mg/dL (<2.0) 05/27/17 Unknown Ur Leukocyte Esterase Neg (Negative) 05/27/17 Unknown Urine WBC (Auto) < 1.0 /HPF (0.0-6.0) 05/27/17 Unknown Urine RBC (Auto) < 1.0 /HPF (0.0-6.0) 05/27/17 Unknown
[2017-05-30] MEDS: DILAUDID IV PRN ×2 (03:50→08:33)
[2017-05-30] MEDS: NACL 0.9% 1000 ML 1,000 ML IV SCH (05:37)
[2017-05-30] MEDS: HEPARIN SUB-Q SCH (05:40)
[2017-05-30 08:29] VITALS: BP 102/57
[2017-05-30] MEDS: FOLVITE PO SCH (08:33)
[2017-05-30] MEDS: HYDREA PO SCH (08:33)
[2017-05-30] MEDS: TESSALON PERLES PO PRN (08:38)
--- NOTE | 2017-06-01 05:21 | Event Note ---
Date: 05/30/17 Patient seen and examined. Did not go yesterday because pain not controlled. Going home today.
== END 2017-05-30 12:41 | disposition home or self-care (01) | DRG 811 ==
LOC: ED 07:00 → 3A 15:22
PROVIDERS: ADMIT Internal Medicine; ATTEND Internal Medicine
DX: D57.00 Hb-SS disease with crisis, unspecified (principal); E43 Unspecified severe protein-calorie malnutrition; E87.1 Hypo-osmolality and hyponatremia; Z68.1 Body mass index [BMI] 19.9 or less, adult; F17.210 Nicotine dependence, cigarettes, uncomplicated; M54.5 Low back pain; E86.0 Dehydration; R59.1 Generalized enlarged lymph nodes; Z82.49 Family history of ischemic heart disease and other diseases of the circulatory system; Z88.5 Allergy status to narcotic agent; Z88.8 Allergy status to other drugs, medicaments and biological substances; Z79.899 Other long term (current) drug therapy
CPT/HCPCS: 36415; 71046; 71275; 80048; 81001; 82140; 82550; 84484; 85025; 85027; 85045; 85379; 87040; 87400; 93005; 93010; 96361; 96374; 96375; J1170; J1644; J7030; Q9967

== ENCOUNTER 2017-10-27 19:54 | Emergency (ER) | payer MEDICARE ==
[2017-10-27] MEDS ORDERED: D5NS 0.2% 1,000 ML IV SCH (21:00)
[2017-10-27 21:10] LABS: Basophils % (Auto) 0.3 % (0.0-1.8); Eosinophils # (Auto) 0.1 K/mm3 (0.0-0.4); Eosinophils % (Auto) 1.3 % (0.0-4.3); Hematocrit 28.1 % (35.5-45.6); Hemoglobin 9.2 gm/dl (11.8-15.2); Lymphocytes # (Auto) 3.9 K/mm3 (1.2-5.4); Mean Corpuscular HGB Conc 33 % (32-34); Mean Corpuscular Hemoglobin 26 pg (28-32); Mean Corpuscular Volume 80 fl (84-94); Monocytes # (Auto) 1.2 K/mm3 (0.0-0.8); Monocytes % (Auto) 10.8 % (0.0-7.3); Platelet Count 369 K/mm3 (140-440); Red Cell Distribution Width 16.9 % (13.2-15.2)
[2017-10-27] MEDS ORDERED: BENADRYL IV ONE ×2 (22:03→23:33)
[2017-10-27] MEDS ORDERED: DILAUDID IV ONE ×2 (22:03→23:33)
[2017-10-27] MEDS ORDERED: ZOFRAN IV ONE (22:03)
--- NOTE | 2017-10-27 22:09 | Emergency Department Report ---
ED General Adult HPI - General Chief complaint: Sickle Cell Crisis Stated complaint: SICKLE CELL CRISIS Time Seen by Provider: 10/27/17 21:53 Source: patient Mode of arrival: Ambulatory Limitations: No Limitations - History of Present Illness Initial comments: Mr. Gross is a very pleasant 27-year-old male with history of sickle cell disease. He presents with severe pain in his lower back and right leg. He feels that his crisis was triggered swimming in a pool yesterday. He only takes folic acid at home. He normally does not have many crises. Consequently , he does not have medication at home. For the last 3 years, he has only required a few hospitalizations for sickle cell crisis. He has been quite healthy. He initiated care with new shop clerk whom he met during his last hospitalization in May. He denies fever. Denies chest pain. Denies shortness of breath. Change of weather winter normally triggers a sickle cell crisis. Going to the swimming pool from the heat to the air conditioned home put a little stress on his body. -: Gradual, days(s) (1) Location: back, right, lower extremity Severity scale (0 -10): 10 Quality: dull Consistency: constant Associated Symptoms: denies: denies other symptoms - Related Data Previous Rx's Medication Instructions Recorded Last Taken Type Folic Acid [Folvite] 1 mg PO BID #30 tablet 01/26/16 Unknown Rx Ondansetron [Zofran ODT TAB] 4 mg PO Q8HR PRN #20 tab.rapdis 01/26/16 Unknown Rx Oxycodone HCl/Acetaminophen 1 each PO Q6HR PRN #20 tablet 05/29/17 Unknown Rx [Percocet 10/325 mg] Oxycodone HCl/Acetaminophen 1 each PO Q6HR PRN #15 tablet 10/28/17 Unknown Rx [Percocet 10/325 mg] Allergies Allergy/AdvReac Type Severity Reaction Status Date / Time morphine Allergy Hives Verified 05/27/17 08:18 acetaminophen [From Lortab] AdvReac Mild Vomiting Verified 05/27/17 08:18 hydrocodone bitartrate AdvReac Mild Vomiting Verified 05/27/17 08:18 [From Lortab] ED Review of Systems ROS: Stated complaint: SICKLE CELL CRISIS Other details as noted in HPI Comment: All other systems reviewed and negative Constitutional: denies: fever, malaise Respiratory: denies: cough Cardiovascular: denies: chest pain Gastrointestinal: denies: abdominal pain, nausea, vomiting ED Past Medical Hx - Past Medical History Previous Medical History?: Yes Hx Sickle Cell Disease: Yes - Surgical History Past Surgical History?: No - Social History Smoking Status: Light Tobacco Smoker Substance Use Type: Alcohol 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 - Medications Home Medications: Home Medications Medication Instructions Recorded Confirmed Last Taken Type Folic Acid [Folvite] 1 mg PO BID #30 tablet 01/26/16 05/27/17 Unknown Rx Ondansetron [Zofran ODT TAB] 4 mg PO Q8HR PRN #20 tab.rapdis 01/26/16 05/27/17 Unknown Rx Oxycodone HCl/Acetaminophen 1 each PO Q6HR PRN #20 tablet 05/29/17 Unknown Rx [Percocet 10/325 mg] Oxycodone HCl/Acetaminophen 1 each PO Q6HR PRN #15 tablet 10/28/17 Unknown Rx [Percocet 10/325 mg] ED Physical Exam - General Limitations: No Limitations General appearance: alert, in no apparent distress - Head Head exam: Present: atraumatic, normocephalic - Eye Eye exam: Present: normal appearance - ENT ENT exam: Present: mucous membranes moist - Neck Neck exam: Present: normal inspection. Absent: tenderness, meningismus - Respiratory Respiratory exam: Present: normal lung sounds bilaterally. Absent: respiratory distress, wheezes, rales, rhonchi - Cardiovascular Cardiovascular Exam: Present: regular rate, normal rhythm, normal heart sounds. Absent: systolic murmur, diastolic murmur, rubs, gallop - GI/Abdominal GI/Abdominal exam: Present: soft, normal bowel sounds. Absent: distended, tenderness, guarding, rebound - Rectal Rectal exam: Present: deferred - Extremities Exam Extremities exam: Present: normal inspection - Back Exam Back exam: Present: normal inspection - Neurological Exam Neurological exam: Present: alert, oriented X3 - Psychiatric Psychiatric exam: Present: normal affect, normal mood - Skin Skin exam: Present: warm, dry, intact, normal color. Absent: rash ED Course Vital Signs 10/27/17 10/27/17 20:31 23:13 Temperature 98.2 F 98 F Pulse Rate 95 H 67 Respiratory 14 18 Rate Blood Pressure 108/70 Blood Pressure 110/48 [Right] O2 Sat by Pulse 97 97 Oximetry ED Medical Decision Making - Lab Data Result diagrams: 10/27/17 20:55 - Medical Decision Making Mr. Gross presents with sickle cell disease crisis. No indication of infection. Pain was controlled with 2 doses of medications. He desired to be discharged home. I prescribed Percocet 10 mg tablets. Critical care attestation.: If time is entered above; I have spent that time in minutes in the direct care of this critically ill patient, excluding procedure time. ED Disposition Clinical Impression: Sickle cell pain crisis Disposition: DC-01 TO HOME OR SELFCARE Is pt being admited?: No Does the pt Need Aspirin: No Condition: Stable Instructions: Sickle Cell Crisis (ED) Prescriptions: Oxycodone HCl/Acetaminophen [Percocet 10/325 mg] 1 each PO Q6HR PRN #15 tablet PRN Reason: Pain Referrals: PRIMARY CARE, [Primary Care Provider] - 3-5 Days [facility] [Outside] - 3-5 Days Time of Disposition: 02:42
[2017-10-28] MEDS ORDERED: DILAUDID IV ONE (01:38)
[2017-10-28 03:01] VITALS: BP 97/55
== END 2017-10-28 03:03 | disposition home or self-care (01) ==
LOC: ED 19:54
DX: D57.00 Hb-SS disease with crisis, unspecified (principal); F17.200 Nicotine dependence, unspecified, uncomplicated; Z88.6 Allergy status to analgesic agent
CPT/HCPCS: 36415; 85025; 85045; 96374; 96375; 96376; 99284; J1170; J1200; J2405

== ENCOUNTER 2017-10-29 16:45 | Emergency (ER) | payer MEDICARE ==
[2017-10-29 16:52] VITALS: BP 106/60
== END 2017-10-29 19:34 | disposition left against medical advice (07) ==
LOC: ED 16:45
DX: M54.5 Low back pain (principal); Z53.21 Procedure and treatment not carried out due to patient leaving prior to being seen by health care provider

== ENCOUNTER 2017-11-07 06:08 | Emergency (ER) | payer MEDICARE ==
[2017-11-07] MEDS ORDERED: D5NS 0.2% 1,000 ML IV SCH (08:00)
[2017-11-07 08:28] LABS: BUN/Creatinine Ratio 16; Blood Urea Nitrogen 8 mg/dL (9-20); Hemolysis Index 38
[2017-11-07 08:29] LABS: Hematocrit 24.3 % (35.5-45.6); Hemoglobin 8.3 gm/dl (11.8-15.2); Mean Corpuscular HGB Conc 34 % (32-34); Mean Corpuscular Hemoglobin 26 pg (28-32); Mean Corpuscular Volume 77 fl (84-94); Platelet Count 407 K/mm3 (140-440); Red Blood Count 3.17 M/mm3 (3.65-5.03); Red Cell Distribution Width 15.4 % (13.2-15.2)
[2017-11-07] MEDS ORDERED: DILAUDID IV ONE ×2 (09:23→10:36)
[2017-11-07] MEDS ORDERED: XYLOCAINE CARDIAC IV ONE (09:23)
[2017-11-07] MEDS ORDERED: BANOPHEN PO ONE (09:23)
[2017-11-07 09:58] LABS: Basophils % (Manual) 0 % (0.0-1.8); Hypochromasia 1+; Sickle Cells 1+; Target Cells 1+; Total Cells Counted 100
[2017-11-07 09:59] LABS: Anisocytosis 2+; Basophilic Stippling Few; Howell-Jolly Bodies 1+; Platelet Estimate Consistent w Auto
--- NOTE | 2017-11-07 10:03 | XRay Report ---
Single view chest: Compared to 05/27/17. History: Weakness. Findings: Normal cardiomediastinal silhouette. Trachea is midline. No consolidation, pneumothorax or pleural effusion. Impression: No acute cardiopulmonary findings.
[2017-11-07] MEDS ORDERED: NACL 0.9% 50 ML ONE (10:09)
[2017-11-07 10:11] LABS: Bilirubin,Urine NEG (Negative); Blood,Urine NEG (Negative); Color,Urine Yellow (Yellow); Mucus,Urine FEW /HPF; Protein,Urine <15 mg/dL mg/dL (Negative)
--- NOTE | 2017-11-07 10:41 | Emergency Department Report ---
ED General Adult HPI - General Chief complaint: Sickle Cell Crisis Stated complaint: SICKLE CELL Time Seen by Provider: 11/07/17 09:09 Source: patient, RN notes reviewed, old records reviewed Mode of arrival: Stretcher Limitations: No Limitations - History of Present Illness Initial comments: This is a 27-year-old male who is known to this provider previously, has a past medical history of sickle cell disease. Presents to the ER with bilateral arm pain, back pain, and leg pain, stating that his symptoms today feel similar to prior episodes of sickle cell crisis. His triggers include cold weather, change of seasons, and stress. He denies sore throat, chest pain, coughing, abdominal pain, urinary symptoms. This pain is sharp, radiates up and down all the extremities, increases with palpation, decreases with rest, position, and hydromorphone. -: Gradual, days(s) Location: back, left, right, upper extremity, lower extremity Quality: stabbing, sharp Consistency: constant Improves with: medication, rest Worsens with: movement Associated Symptoms: malaise, weakness. denies: confusion, chest pain, cough, diaphoresis, fever/chills, headaches, loss of appetite, nausea/vomiting, rash, seizure, shortness of breath, syncope - Related Data Previous Rx's Medication Instructions Recorded Last Taken Type Folic Acid [Folvite] 1 mg PO QDAY #30 tablet 11/03/17 11/06/17 Rx oxyCODONE /ACETAMINOPHEN [Percocet 1 tab PO BID PRN #10 tablet 11/03/17 Rx 5/325 mg] oxyCODONE [Roxicodone] 5 mg PO Q6HR PRN #15 tablet 11/07/17 Unknown Rx Allergies Allergy/AdvReac Type Severity Reaction Status Date / Time morphine Allergy Hives Verified 10/30/17 15:35 acetaminophen [From Lortab] AdvReac Mild Vomiting Verified 10/30/17 15:35 hydrocodone bitartrate AdvReac Mild Vomiting Verified 10/30/17 15:35 [From Lortab] ED Review of Systems ROS: Stated complaint: SICKLE CELL Other details as noted in HPI Comment: All other systems reviewed and negative ED Past Medical Hx - Past Medical History Hx Congestive Heart Failure: No Hx Diabetes: No Hx Sickle Cell Disease: Yes Hx Asthma: No Hx COPD: No - Surgical History Past Surgical History?: No - Social History Smoking Status: Never Smoker Substance Use Type: None - Medications Home Medications: Home Medications Medication Instructions Recorded Confirmed Last Taken Type Folic Acid [Folvite] 1 mg PO QDAY #30 tablet 11/03/17 11/07/17 11/06/17 Rx oxyCODONE /ACETAMINOPHEN [Percocet 1 tab PO BID PRN #10 tablet 11/03/1711/06/17 Rx 5/325 mg] oxyCODONE [Roxicodone] 5 mg PO Q6HR PRN #15 tablet 11/07/17 Unknown Rx ED Physical Exam - General Limitations: No Limitations General appearance: alert, in distress - Head Head exam: Present: atraumatic, normocephalic - Eye Eye exam: Present: normal appearance, EOMI. Absent: nystagmus - ENT ENT exam: Present: normal exam, normal orophraynx, mucous membranes moist, normal external ear exam - Neck Neck exam: Present: normal inspection, full ROM - Respiratory Respiratory exam: Present: normal lung sounds bilaterally. Absent: respiratory distress - Cardiovascular Cardiovascular Exam: Present: regular rate, normal rhythm, normal heart sounds. Absent: bradycardia, tachycardia, irregular rhythm, systolic murmur, diastolic murmur, rubs, gallop - GI/Abdominal GI/Abdominal exam: Present: soft, normal bowel sounds. Absent: distended, tenderness, guarding, rebound, rigid, pulsatile mass - Rectal Rectal exam: Present: deferred - Extremities Exam Extremities exam: Present: normal inspection, full ROM, tenderness (there is diffuse along bony tenderness. Compartments are soft. The pelvis is stable. 2 + pulses noted in the bilateral upper, lower extremities.), normal capillary refill. Absent: pedal edema, joint swelling, calf tenderness - Back Exam Back exam: Present: normal inspection, CVA tenderness (R), CVA tenderness (L), paraspinal tenderness, vertebral tenderness - Neurological Exam Neurological exam: Present: alert, oriented X3 - Psychiatric Psychiatric exam: Present: anxious - Skin Skin exam: Present: warm, dry, intact, normal color. Absent: rash ED Course Vital Signs 11/07/17 11/07/17 11/07/17 06:06 07:27 08:00 Temperature 99.3 F Pulse Rate 94 H 80 Respiratory 18 15 Rate Blood Pressure 119/68 113/70 105/54 O2 Sat by Pulse 97 97 Oximetry 11/07/17 11/07/17 11/07/17 08:07 09:00 09:33 Temperature 99.9 F H Pulse Rate 77 Respiratory 12 19 Rate Blood Pressure 114/70 O2 Sat by Pulse 96 Oximetry 11/07/17 10:00 Temperature Pulse Rate 94 H Respiratory 14 Rate Blood Pressure 115/63 O2 Sat by Pulse 96 Oximetry - Reevaluation(s) Reevaluation #1: 11/07/17 10:38 Differential diagnosis, including but not limited to: Sickle cell crisis, pneumonia, urinary tract infection Assessment and plan: 27-year-old male with sickle cell crisis. He has a low- grade temperature, heart rate greater than 90, and leukocytosis. Based on the patient's history and physical, I do not suspect bacteremic infection at this time. Based on his history, he reports that he's recently been stressed out and endorses multiple life stressors, as well as change in weather, all of which are the typical factors which caused him to have a sickle cell crisis. Therefore, while I appreciates that the patient does rule in for systemic inflammatory response syndrome, I do not believe he will benefit from broad-spectrum antibiotics, aggressive IV fluids, as well as blood cultures. It is my opinion that he will benefit from aggressive pain control, judicious fluids, and symptom control. He was given hydromorphone 1, IV lidocaine 1, as well as Benadryl orally 1. On my reassessment, he reported that he was still in significant pain, so an additional dose of hydromorphone has been ordered. X-ray of the chest was negative, urinalysis is negative. Vital signs remained stable. If patient's pain cannot be controlled adequately with him 3 doses of pain medicine, he will be admitted to the hospital for sickle cell crisis. Reevaluation #2: 11/07/17 12:02 Reassessed. Patient feeling much improved. He is sleeping on multiple re- evaluations. Tachycardia is resolved. Patient medically suitable for discharge at this time. ED Medical Decision Making - Lab Data Result diagrams: 11/07/17 Unknown 11/07/17 Unknown Vital Signs 11/07/17 11/07/17 11/07/17 06:06 07:27 08:00 Temperature 99.3 F Pulse Rate 94 H 80 Respiratory 18 15 Rate Blood Pressure 119/68 113/70 105/54 O2 Sat by Pulse 97 97 Oximetry 11/07/17 11/07/17 08:07 09:33 Temperature 99.9 F H Pulse Rate Respiratory 12 Rate Blood Pressure O2 Sat by Pulse Oximetry Lab Results 11/07/17 11/07/17 11/07/17 Range/Units Unknown Unknown Unknown WBC 13.9 H (4.5-11.0) K/mm3 RBC 3.17 L (3.65-5.03) M/mm3 Hgb 8.3 L (11.8-15.2) gm/dl Hct 24.3 L (35.5-45.6) % MCV 77 L (84-94) fl MCH 26 L (28-32) pg MCHC 34 (32-34) % RDW 15.4 H (13.2-15.2) % Plt Count 407 (140-440) K/mm3 Lymph # Chief Operator Add Manual Diff Complete Total Counted 100 Seg Neuts % (Manual) 70.0 (40.0-70.0) % Band Neutrophils % 0 % Lymphocytes % (Manual) 27.0 (13.4-35.0) % Reactive Lymphs % (Man) 0 % Monocytes % (Manual) 2.0 (0.0-7.3) % Eosinophils % (Manual) 1.0 (0.0-4.3) % Basophils % (Manual) 0 (0.0-1.8) % Metamyelocytes % 0 % Myelocytes % 0 % Promyelocytes % 0 % Blast Cells % 0 % Nucleated RBC % 4.0 H (0.0-0.9) % Seg Neutrophils # Man 10.2 H (1.8-7.7) K/mm3 Band Neutrophils # 0.0 K/mm3 Lymphocytes # (Manual) 3.9 (1.2-5.4) K/mm3 Abs React Lymphs (Man) 0.0 K/mm3 Monocytes # (Manual) 0.3 (0.0-0.8) K/mm3 Eosinophils # (Manual) 0.1 (0.0-0.4) K/mm3 Basophils # (Manual) 0.0 (0.0-0.1) K/mm3 Metamyelocytes # 0.0 K/mm3 Myelocytes # 0.0 K/mm3 Promyelocytes # 0.0 K/mm3 Blast Cells # 0.0 K/mm3 WBC Morphology Not Reportable Hypersegmented Neuts Not Reportable Hyposegmented Neuts Not Reportable Hypogranular Neuts Not Reportable Smudge Cells Not Reportable Toxic Granulation Not Reportable Toxic Vacuolation Not Reportable Dohle Bodies Not Reportable Pelger-Huet Anomaly Not Reportable Savage Rods Not Reportable Platelet Estimate Consistent w auto Clumped Platelets Not Reportable Plt Clumps, EDTA Not Reportable Large Platelets Not Reportable Giant Platelets Not Reportable Platelet Satelliting Not Reportable Plt Morphology Comment Not Reportable RBC Morphology Not Reportable Dimorphic RBCs Not Reportable Polychromasia Few Hypochromasia 1+ Poikilocytosis Not Reportable Basophilic Stippling Few Anisocytosis 2+ Microcytosis Not Reportable Macrocytosis Not Reportable Spherocytes Not Reportable Pappenheimer Bodies Not Reportable Sickle Cells 1+ Target Cells 1+ Tear Drop Cells Not Reportable Ovalocytes Not Reportable Helmet Cells Not Reportable Herrera-Estherwood Bodies 1+ [place] Rings Not Reportable Zulma Cells Not Reportable Bite Cells Not Reportable Crenated Cell Not Reportable Elliptocytes Not Reportable Acanthocytes (Spur) Not Reportable Rouleaux Not Reportable Hemoglobin C Crystals Not Reportable Schistocytes Not Reportable Malaria parasites Not Reportable Percent Retic 3.50 H (0.78-2.58) % Wesley Bodies Not Reportable Hem Pathologist Commnt No Sodium 136 L (137-145) mmol/L Potassium 4.1 (3.6-5.0) mmol/L Chloride 100.3 (98-107) mmol/L Carbon Dioxide 25 (22-30) mmol/L Anion Gap 15 mmol/L BUN 8 L (9-20) mg/dL Creatinine 0.5 L (0.8-1.5) mg/dL Estimated GFR > 60 ml/min BUN/Creatinine Ratio 16 % Glucose 86 (75-100) mg/dL Calcium 9.0 (8.4-10.2) mg/dL Urine Color Yellow (Yellow) Urine Turbidity Clear (Clear) Urine pH 6.0 (5.0-7.0) Ur Specific [place] 1.005 (1.003-1.030) Urine Protein <15 mg/dl (Negative) mg/dL Urine Glucose (UA) 50 (Negative) mg/dL Urine Ketones Neg (Negative) mg/dL Urine Blood Neg (Negative) Urine Nitrite Neg (Negative) Urine Bilirubin Neg (Negative) Urine Urobilinogen 4.0 (<2.0) mg/dL Ur Leukocyte Esterase Neg (Negative) Urine WBC (Auto) 1.0 (0.0-6.0) /HPF Urine RBC (Auto) 1.0 (0.0-6.0) /HPF Urine Mucus Few /HPF - Radiology Data Radiology results: report reviewed, image reviewed X-ray of the chest is negative for acute disease Critical care attestation.: If time is entered above; I have spent that time in minutes in the direct care of this critically ill patient, excluding procedure time. ED Disposition Clinical Impression: Sickle cell pain crisis Disposition: TO HOME OR SELFCARE Is pt being admited?: No Does the pt Need Aspirin: No Condition: Good Instructions: Sickle Cell Crisis (ED) Additional Instructions: Take the pain medication as directed. Follow up with the primary care doctor or senior technical specialist within the next 2 weeks. Return to the ER right away with new pain, worsened pain, migration of pain, fevers, chills, lethargy, irritability, projectile vomiting, change in mental status, confusion, inability to tolerate liquid feeds. Referrals: PRIMARY CARE, [Primary Care Provider] - 3-5 Days ANAI DESAI DO [Staff Physician] - 3-5 Days
[2017-11-07] MEDS ORDERED: NACL 0.9% IV SCH (11:00)
[2017-11-07 12:26] VITALS: BP 106/50
== END 2017-11-07 12:26 | disposition home or self-care (01) ==
LOC: ED 06:08
DX: D57.419 Sickle-cell thalassemia, unspecified, with crisis (principal); Z88.5 Allergy status to narcotic agent
CPT/HCPCS: 36415; 71045; 80048; 81001; 85007; 85025; 85045; 87086; 96365; 96375; 96376; 99284; J1170; J2001; Q0163

== ENCOUNTER 2018-10-30 13:01 | Emergency (ER) | payer MEDICARE ==
--- NOTE | 2018-10-30 14:24 | Event Note ---
ED Screening Note ED Screening Note: pt presents for sickle cell crisis pain in bilateral LE since october 26 last admitted in July last RBC transfusion two years ago takes hydrourea, folic acid, and percocet This initial assessment/diagnostic orders/clinical plan/treatment(s) is/are subject to change based on patients health status, clinical progression and re- assessment by fellow clinical providers in the ED. Further treatment and workup at subsequent clinical providers discretion. Patient/guardian urged not to elope from the ED as their condition may be serious if not clinically assessed and managed. Initial orders include: labs
[2018-10-30 15:17] LABS: Basophils # (Auto) 0.2 K/mm3 (0.0-0.1); Basophils % (Auto) 2.3 % (0.0-1.8); Eosinophils # (Auto) 0.1 K/mm3 (0.0-0.4); Hematocrit 31.6 % (35.5-45.6); Hemoglobin 10.9 gm/dl (11.8-15.2); Lymphocytes # (Auto) 2.4 K/mm3 (1.2-5.4); Lymphocytes % (Auto) 33.8 % (13.4-35.0); Mean Corpuscular HGB Conc 34 % (32-34); Mean Corpuscular Volume 86 fl (84-94); Monocytes # (Auto) 0.8 K/mm3 (0.0-0.8); Monocytes % (Auto) 10.8 % (0.0-7.3); Platelet Count 391 K/mm3 (140-440); Red Blood Count 3.68 M/mm3 (3.65-5.03); Red Cell Distribution Width 18.8 % (13.2-15.2)
[2018-10-30 15:38] LABS: Alanine Aminotransferase 16 units/L (7-56); Albumin 4.4 g/dL (3.9-5); BUN/Creatinine Ratio 8; Blood Urea Nitrogen 5 mg/dL (9-20); Calcium 9.2 mg/dL (8.4-10.2); Hemolysis Index 23
[2018-10-30] MEDS ORDERED: NACL 0.9% 1000 ML 1,000 ML IV ONE (16:35)
[2018-10-30] MEDS ORDERED: DILAUDID IV ONE ×2 (16:35→18:53)
[2018-10-30] MEDS ORDERED: REGLAN IV ONE (18:54)
[2018-10-30] MEDS ORDERED: BENADRYL IV ONE (18:54)
--- NOTE | 2018-10-30 18:57 | Emergency Department Report ---
<MARLENI EASTMAN - Last Filed: 10/30/18 18:53> ED General Adult HPI - General Chief complaint: Sickle Cell Crisis Stated complaint: SICKLE CELL PAIN Time Seen by Provider: 10/30/18 14:05 Source: patient Mode of arrival: Ambulatory Limitations: No Limitations - History of Present Illness Initial comments: 28-year-old -[place] male to the emergency room complaining of bilateral leg pain and lower back pain and Tuesday. Patient reports he says his sickle cell is flaring up. Patient denies any nausea vomiting. 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 Patient is followed by the [facility]. She reports that he feels like he is dehydrated. Onset/Timin -: days(s) Location: back, lower extremity Radiation: non-radiation Severity scale (0 -10): 8 Quality: aching Consistency: constant Improves with: none Worsens with: movement Associated Symptoms: denies other symptoms Treatments Prior to Arrival: none - Related Data Home Medications Medication Instructions Recorded Confirmed Last Taken Hydrea 500 mg PO DAILY 08/09/18 08/09/18 Unknown Previous Rx's Medication Instructions Recorded Last Taken Type Folic Acid [Folvite] 1 mg PO QDAY #30 tablet 11/03/17 01/30/18 Rx oxyCODONE /ACETAMINOPHEN [Percocet 1 tab PO BID PRN #10 tablet 11/03/17 01/25/18 Rx 5/325 mg] oxyCODONE [Roxicodone] 5 mg PO Q6HR PRN #15 tablet 11/07/17 Unknown Rx ALBUTEROL Inhaler (OR & NICU) 2 puff IH Q4HR PRN #1 inhalation 06/05/18 Unknown Rx [ProAir HFA Inhaler] Azithromycin [Zithromax Z-YUMIKO] 250 mg PO DAILY #6 tablet 06/05/18 Unknown Rx HYDROcodone/APAP 5-325 [[place] 1 each PO Q6HR PRN #12 tablet 06/05/18 Unknown Rx 5/325] Ketorolac [Toradol] 10 mg PO Q6H PRN #12 tablet 06/05/18 Unknown Rx predniSONE [Deltasone] 20 mg PO DAILY #15 tablet 06/05/18 Unknown Rx Lidocaine Viscous 2% 15 ml MM CONT #1 udc 08/08/18 Unknown Rx Amoxicillin/K Clav Tab [Augmentin 1 tab PO Q12HR 7 Days #14 tab 08/10/18 Unknown Rx 875 mg] Ketorolac [Toradol] 10 mg PO Q8H PRN #20 tablet 10/30/18 Unknown Rx Allergies Allergy/AdvReac Type Severity Reaction Status Date / Time morphine Allergy Hives Verified 10/30/17 15:35 ED Review of Systems Comment: All other systems reviewed and negative ED Past Medical Hx - Past Medical History Previous Medical History?: Yes Hx Congestive Heart Failure: No Hx Diabetes: No Hx Sickle Cell Disease: Yes Hx Asthma: No Hx COPD: No Hx HIV: Yes - Surgical History Past Surgical History?: No - Social History Smoking Status: Current Every Day Smoker Substance Use Type: Alcohol - Medications Home Medications: Home Medications Medication Instructions Recorded Confirmed Last Taken Type Folic Acid [Folvite] 1 mg PO QDAY #30 tablet 11/03/17 08/10/18 01/30/18 Rx oxyCODONE /ACETAMINOPHEN [Percocet 1 tab PO BID PRN #10 tablet 11/03/17 08/10/18 01/25/18 Rx 5/325 mg] oxyCODONE [Roxicodone] 5 mg PO Q6HR PRN #15 tablet 11/07/17 08/10/18 Unknown Rx ALBUTEROL Inhaler (OR & NICU) 2 puff IH Q4HR PRN #1 inhalation 06/05/18 08/10/18 Unknown Rx [ProAir HFA Inhaler] Azithromycin [Zithromax Z-YUMIKO] 250 mg PO DAILY #6 tablet 06/05/18 08/10/18 Unknown Rx HYDROcodone/APAP 5-325 [[place] 1 each PO Q6HR PRN #12 tablet 06/05/18 08/10/18 Unknown Rx 5/325] Ketorolac [Toradol] 10 mg PO Q6H PRN #12 tablet 06/05/18 08/10/18 Unknown Rx predniSONE [Deltasone] 20 mg PO DAILY #15 tablet 06/05/18 08/10/18 Unknown Rx Lidocaine Viscous 2% 15 ml MM CONT #1 udc 08/08/18 Unknown Rx Hydrea 500 mg PO DAILY 08/09/18 08/09/18 Unknown History Amoxicillin/K Clav Tab [Augmentin 1 tab PO Q12HR 7 Days #14 tab 08/10/18 Unknown Rx 875 mg] Ketorolac [Toradol] 10 mg PO Q8H PRN #20 tablet 10/30/18 Unknown Rx ED Physical Exam - General Limitations: No Limitations General appearance: alert, in no apparent distress - Head Head exam: Present: atraumatic, normocephalic - Eye Eye exam: Present: normal appearance - ENT ENT exam: Present: mucous membranes moist - Neck Neck exam: Present: normal inspection - Respiratory Respiratory exam: Present: normal lung sounds bilaterally. Absent: respiratory distress - Cardiovascular Cardiovascular Exam: Present: regular rate, normal rhythm. Absent: systolic murmur, diastolic murmur, rubs, gallop - GI/Abdominal GI/Abdominal exam: Present: soft, normal bowel sounds - Neurological Exam Neurological exam: Present: alert, oriented X3 - Psychiatric Psychiatric exam: Present: normal affect, normal mood - Skin Skin exam: Present: warm, dry, intact, normal color. Absent: rash ED Medical Decision Making - Lab Data Result diagrams: 10/30/18 14:57 10/30/18 14:57 - Medical Decision Making 28-year-old male comes in with bilateral leg pain and lower back pain complains of sickle cell flareup. Patient's been given a liter of normal saline he's had 1 dose of Dilaudid at 436. Provider went back to check on patient patient only had one fourth of the normal saline has been infused. At that time provider asked senior support engineer to place a pressure bag fluids infusing better. Patient be ordered on second dose of Dilaudid 0.5 mg Benadryl 25 and Reglan 10. Patient to be evaluated after he had at least 1 L fluids. Patient care will be picked up by SAM Bullock. ED Disposition Clinical Impression: Chronic pain syndrome, Sickle cell pain crisis Disposition: DC-01 TO HOME OR SELFCARE Condition: Stable Instructions: Chronic Pain (ED), Sickle Cell Crisis (ED) Additional Instructions: Take medications with food, drink plenty of fluids and follow up with your primary care physician as previously scheduled. Return to the ED immediately if symptoms get worse. Prescriptions: Ketorolac [Toradol] 10 mg PO Q8H PRN #20 tablet PRN Reason: Pain Referrals: ANAI DESAI DO [Primary Care Provider] - 3-5 Days Print Language: HUNGARIAN <SISI DESHPANDE - Last Filed: 07/08/19 21:02> ED Review of Systems ROS: Stated complaint: SICKLE CELL PAIN Other details as noted in HPI ED Course Vital Signs 10/30/18 10/30/18 14:23 17:41 Temperature 98.7 F Pulse Rate 90 Respiratory 18 18 Rate Blood Pressure 112/77 O2 Sat by Pulse 97 Oximetry ED Medical Decision Making - Lab Data Result diagrams: 10/30/18 14:57 10/30/18 14:57 - Medical Decision Making I assumed care of the patient at shift change from my colleague Emmie Eastman PA-C at 1900 hours. Patient received normal saline 1 L IV fluids and medicated fully for his chronic pain. Lab test results were reviewed and are typical of his chronic sickle cell condition. On reevaluation, patient is alert and oriented x 3 and is in no acute distress. Patient's pain is well controlled on medications, patient eating dinner with family at bedside. Patient states that he has Percocet 10mg/325mg for pain PRN but that this makes him very drowsiness even at work. Patient requested pain medications which does not produce drowsiness. Patient was discharged home on Ketorolac 10mg Q8H PRN and advised to follow up with his PCP as previously scheduled. - Differential Diagnosis chronic pain syndrome; sickle cell pain crisis Critical care attestation.: If time is entered above; I have spent that time in minutes in the direct care of this critically ill patient, excluding procedure time. ED Disposition Is pt being admited?: No Does the pt Need Aspirin: No Time of Disposition: 20:59
[2018-10-30 21:44] VITALS: BP 122/66
== END 2018-10-30 21:45 | disposition home or self-care (01) ==
LOC: ED 13:01
DX: D57.00 Hb-SS disease with crisis, unspecified (principal); M54.5 Low back pain; G89.4 Chronic pain syndrome; E86.0 Dehydration; F17.200 Nicotine dependence, unspecified, uncomplicated; Z21 Asymptomatic human immunodeficiency virus [HIV] infection status; Z88.5 Allergy status to narcotic agent; Z79.899 Other long term (current) drug therapy
CPT/HCPCS: 36415; 80053; 83615; 85025; 85045; 96361; 96374; 96375; 96376; 99283; J1170; J1200; J2765; J7030

== ENCOUNTER 2019-06-04 11:36 | Emergency (ER) | payer MEDICARE ==
[2019-06-04 11:45] VITALS: BP 109/70
--- NOTE | 2019-06-04 12:36 | Emergency Department Report ---
Blank Doc - Documentation Documentation: 28-year-old male that presents with back pains, generalized body aches, and co ugh. HX of sickle cell and HIV. This initial assessment/diagnostic orders/clinical plan/treatment(s) is/are subject to change based on patient's health status, clinical progression and re-assessment by fellow clinical providers in the ED. Further treatment and workup at subsequent clinical providers discretion. Patient/guardians urged not to elope from the ED as their condition may be serious if not clinically assessed and managed. Initial orders include: 1- Patient sent to MAIN ED for further evaluation and treatment 2- labs 3- CXR
[2019-06-04] MEDS ORDERED: ONDANSETRON 4 MG/2 ML INJ IV ONE (15:16)
[2019-06-04] MEDS ORDERED: SODIUM CHLORIDE 0.9% 1000 ML 1,000 ML IV ONE (15:16)
[2019-06-04] MEDS ORDERED: HYDROmorphone 1 MG/1 ML INJ IV ONE ×2 (15:17→16:46)
--- NOTE | 2019-06-04 15:22 | Emergency Department Report ---
ED General Adult HPI - General Chief complaint: Back Pain/Injury Stated complaint: SICKLE CELL, FLU Time Seen by Provider: 06/04/19 12:33 Source: patient Mode of arrival: Ambulatory Limitations: No Limitations - History of Present Illness Initial comments: 28-year-old -[place] male presents to the emergency room complaining of back pain and left thigh pain. Patient reports he has a history of HIV and sickle cell disease. Patient denies any trauma. Patient reports that he had a cold last and has taken NyQuil in the past. Patient reports that his Percocet is not holding his pain. Patient reports he is on antiviral medication for his HIV. Patient reports an allergy to morphine. Patient reports that he has had Dilaudid in the past which helps with his pain. - Related Data Home Medications Medication Instructions Recorded Confirmed Last Taken Hydrea 500 mg PO DAILY 08/09/18 08/09/18 Unknown Previous Rx's Medication Instructions Recorded Last Taken Type Folic Acid [Folvite] 1 mg PO QDAY #30 tablet 11/03/17 01/30/18 Rx oxyCODONE /ACETAMINOPHEN [Percocet 1 tab PO BID PRN #10 tablet 11/03/17 01/25/18 Rx 5/325 mg] oxyCODONE [Roxicodone] 5 mg PO Q6HR PRN #15 tablet 11/07/17 Unknown Rx Albuterol INH(or & Nicu Only) 2 puff IH Q4HR PRN #1 inhalation 06/05/18 Unknown Rx [ProAir HFA Inhaler] Azithromycin [Zithromax Z-YUMIKO] 250 mg PO DAILY #6 tablet 06/05/18 Unknown Rx HYDROcodone/APAP 5-325 [Mcn[place] 1 each PO Q6HR PRN #12 tablet 06/05/18 Unknown Rx 5/325] Ketorolac [Toradol] 10 mg PO Q6H PRN #12 tablet 06/05/18 Unknown Rx predniSONE [Deltasone] 20 mg PO DAILY #15 tablet 06/05/18 Unknown Rx Lidocaine Viscous 2% 15 ml MM CONT #1 udc 08/08/18 Unknown Rx Amoxicillin/K Clav Tab [Augmentin 1 tab PO Q12HR 7 Days #14 tab 08/10/18 Unknown Rx 875 mg] Ketorolac [Toradol] 10 mg PO Q8H PRN #20 tablet 10/30/18 Unknown Rx Allergies Allergy/AdvReac Type Severity Reaction Status Date / Time morphine Allergy Hives Verified 10/30/17 15:35 ED Review of Systems ROS: Stated complaint: SICKLE CELL, FLU Other details as noted in HPI ED Past Medical Hx - Past Medical History Previous Medical History?: Yes Hx Congestive Heart Failure: No Hx Diabetes: No Hx Sickle Cell Disease: Yes Hx Asthma: No Hx COPD: No Hx HIV: Yes - Surgical History Past Surgical History?: No - Social History Smoking Status: Current Every Day Smoker Substance Use Type: Alcohol, Marijuana - Medications Home Medications: Home Medications Medication Instructions Recorded Confirmed Last Taken Type Folic Acid [Folvite] 1 mg PO QDAY #30 tablet 11/03/17 08/10/18 01/30/18 Rx oxyCODONE /ACETAMINOPHEN [Percocet 1 tab PO BID PRN #10 tablet 11/03/17 08/10/18 01/25/18 Rx 5/325 mg] oxyCODONE [Roxicodone] 5 mg PO Q6HR PRN #15 tablet 11/07/17 08/10/18 Unknown Rx Albuterol INH(or & Nicu Only) 2 puff IH Q4HR PRN #1 inhalation 06/05/18 08/10/18 Unknown Rx [ProAir HFA Inhaler] Azithromycin [Zithromax Z-YUMIKO] 250 mg PO DAILY #6 tablet 06/05/18 08/10/18 Unknown Rx HYDROcodone/APAP 5-325 [[place]nabb 1 each PO Q6HR PRN #12 tablet 06/05/18 08/10/18 Unknown Rx 5/325] Ketorolac [Toradol] 10 mg PO Q6H PRN #12 tablet 06/05/18 08/10/18 Unknown Rx predniSONE [Deltasone] 20 mg PO DAILY #15 tablet 06/05/18 08/10/18 Unknown Rx Lidocaine Viscous 2% 15 ml MM CONT #1 udc 08/08/18 Unknown Rx Hydrea 500 mg PO DAILY 08/09/18 08/09/18 Unknown History Amoxicillin/K Clav Tab [Augmentin 1 tab PO Q12HR 7 Days #14 tab 08/10/18 Unknown Rx 875 mg] Ketorolac [Toradol] 10 mg PO Q8H PRN #20 tablet 10/30/18 Unknown Rx ED Physical Exam - General Limitations: No Limitations General appearance: alert, in no apparent distress - Head Head exam: Present: atraumatic, normocephalic - Eye Eye exam: Present: normal appearance - ENT ENT exam: Present: mucous membranes moist - Neck Neck exam: Present: normal inspection - Respiratory Respiratory exam: Present: normal lung sounds bilaterally. Absent: respiratory distress - Cardiovascular Cardiovascular Exam: Present: tachycardia - GI/Abdominal GI/Abdominal exam: Present: soft, normal bowel sounds - Extremities Exam Extremities exam: Present: normal inspection, full ROM - Expanded Lower Extremity Exam Left Upper Leg exam: Present: full ROM, tenderness. Absent: swelling Knee exam: Present: normal inspection, full ROM. Absent: tenderness Lower Leg exam: Present: normal inspection. Absent: full ROM Ankle exam: Present: normal inspection, full ROM Foot/Toe exam: Present: normal inspection, full ROM Gait: Positive: observed and normal - Back Exam Back exam: Present: full ROM, paraspinal tenderness - Neurological Exam Neurological exam: Present: alert, oriented X3, normal gait - Psychiatric Psychiatric exam: Present: normal affect, normal mood - Skin Skin exam: Present: warm, dry, intact, normal color. Absent: rash ED Course Vital Signs 06/04/19 11:44 Temperature 99.1 F Pulse Rate 92 H Respiratory 16 Rate Blood Pressure 109/70 O2 Sat by Pulse 94 Oximetry ED Medical Decision Making - Lab Data Result diagrams: 06/04/19 15:07 06/04/19 15:07 - Medical Decision Making 28-year-old -[place] male presents to the emergency room complaining of back pain and left thigh pain. Patient reports he has a history of HIV and sickle cell disease. Patient denies any trauma. Patient reports that he had a cold last and has taken NyQuil in the past. Patient reports that his Percocet is not holding his pain. Patient reports he is on antiviral medication for his HIV. Patient reports an allergy to morphine. Patient reports that he has had Dilaudid in the past which helps with his pain. Labs have been ordered BMP, CBC, retake count, urinalysis. IV normal saline Dilaudid 0.5 mg IV in Zofran 4 mg IV ordered. Nurse reports that patient eloped left AGAINST MEDICAL ADVICE. Critical care attestation.: If time is entered above; I have spent that time in minutes in the direct care of this critically ill patient, excluding procedure time. ED Disposition Clinical Impression: Sickle cell pain crisis Disposition: ELOPED Is pt being admited?: No Does the pt Need Aspirin: No Condition: Stable Referrals: JONATHAN POST MD [Primary Care Provider] - 3-5 Days
[2019-06-04 15:46] LABS: Basophils # (Auto) 0.2 K/mm3 (0.0-0.1); Basophils % (Auto) 2.1 % (0.0-1.8); Eosinophils % (Auto) 0.3 % (0.0-4.3); Hematocrit 32.8 % (35.5-45.6); Hemoglobin 11.2 gm/dl (11.8-15.2); Lymphocytes # (Auto) 2.7 K/mm3 (1.2-5.4); Lymphocytes % (Auto) 35.2 % (13.4-35.0); Mean Corpuscular HGB Conc 34 % (32-34); Mean Corpuscular Volume 91 fl (84-94); Monocytes # (Auto) 0.8 K/mm3 (0.0-0.8); Monocytes % (Auto) 10.4 % (0.0-7.3); Platelet Count 306 K/mm3 (140-440); Red Blood Count 3.61 M/mm3 (3.65-5.03); Red Cell Distribution Width 19.3 % (13.2-15.2)
[2019-06-04 15:57] LABS: BUN/Creatinine Ratio 10; Blood Urea Nitrogen 6 mg/dL (9-20); Hemolysis Index 22
[2019-06-04 17:36] LABS: Bilirubin,Urine NEG (Negative); Blood,Urine SM (Negative); Color,Urine Yellow (Yellow); Mucus,Urine FEW /HPF; Protein,Urine <15 mg/dL mg/dL (Negative); RBC,Urine < 1.0 /HPF (0.0-6.0)
== END 2019-06-04 17:12 | disposition left against medical advice (07) ==
LOC: ED 11:36
DX: D57.1 Sickle-cell disease without crisis (principal); J11.1 Influenza due to unidentified influenza virus with other respiratory manifestations; F12.10 Cannabis abuse, uncomplicated; F17.200 Nicotine dependence, unspecified, uncomplicated; Z79.899 Other long term (current) drug therapy; Z21 Asymptomatic human immunodeficiency virus [HIV] infection status; Z88.5 Allergy status to narcotic agent
CPT/HCPCS: 36415; 80048; 81001; 85025; 85045; 87086; 96374; 96375; 96376; 99283; J1170; J2405; J7030

== ENCOUNTER 2020-08-11 04:43 | Emergency (ER) | payer MEDICARE ==
[2020-08-11 05:05] VITALS: BP 126/96
[2020-08-11] MEDS ORDERED: SODIUM CHLORIDE 0.9% 1000 ML 1,000 ML IV ONE (05:16)
--- NOTE | 2020-08-11 05:29 | XRay Report ---
CHEST 2 VIEWS INDICATION: sickle cell CP. COMPARISON: Chest x-ray from 06/05/2018 FINDINGS: SUPPORT DEVICES: None. HEART: Within normal limits. LUNGS/PLEURA: No acute air space or interstitial disease. No pneumothorax. ADDITIONAL FINDINGS: None. IMPRESSION: 1. No acute findings. Signer Name: Clay Britt MD Signed: 08/11/2020 5:25 AM Workstation Name: [id number]
[2020-08-11 05:47] LABS: Hematocrit 29.7 % (35.5-45.6); Hemoglobin 10.2 gm/dl (11.8-15.2); Mean Corpuscular HGB Conc 35 % (32-34); Mean Corpuscular Volume 79 fl (84-94); Platelet Count 485 K/mm3 (140-440); Red Blood Count 3.78 M/mm3 (3.65-5.03); Red Cell Distribution Width 14.6 % (13.2-15.2)
[2020-08-11 06:00] LABS: Alanine Aminotransferase 6 units/L (7-56); Albumin 4.2 g/dL (3.9-5); Blood Urea Nitrogen 6 mg/dL (9-20); Calcium 9.3 mg/dL (8.4-10.2); Hemolysis Index 6
[2020-08-11 06:01] LABS: BUN/Creatinine Ratio 15
[2020-08-11 07:54] LABS: Total Cells Counted 100
[2020-08-11 07:55] LABS: Anisocytosis 1+; Poikilocytosis 2+; Sickle Cells 1+
[2020-08-11 07:56] LABS: Platelet Estimate Consistent w Auto; Target Cells 2+
--- NOTE | 2020-08-11 08:45 | Electrocardiograph Report ---
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
== END 2020-08-11 19:00 | disposition left against medical advice (07) ==
LOC: ED 04:43
DX: D57.00 Hb-SS disease with crisis, unspecified (principal); Z53.21 Procedure and treatment not carried out due to patient leaving prior to being seen by health care provider
CPT/HCPCS: 36415; 71046; 80053; 84484; 85007; 85025; 85045; 93005; J7030